=== PATIENT | female | born 1990 | race Caucasian/White ===

== ENCOUNTER 2017-03-03 16:49 | Emergency (ER) | payer OTHER ==
[~2017-03-03 16:49] MED LIST: PREN1MIS11 PO
--- NOTE | 2017-03-03 17:43 | PD ---
HPI Chief Complaint Vaginal spotting Date Seen: Mar 03, 2017 Travel History International Travel<30 Days: No Contact w/Intl Traveler<30Days: No Known Affected Area: No History of Present Illness HPI G1 at 38w 4d, [facility] 03-13-17 presents with c/o vaginal spotting after cervical exam in office. Patient reports some cramping. Denies LOF. Reports good movement. History Past Medical History Medical History: Denies Significant Hx Past Surgical History Surgical History: No Previous Surgery Family History Family History: Negative Social History Alcohol Use: No Tobacco Use: No Substance Abuse: No Allergies-Medications (Allergen,Severity, Reaction): Coded Allergies: No Known Allergies (Unverified , 03/03/17) Home Meds Active Scripts W/O Vit A W/ Fe Carbo Pack (Citranatal 90 Dha Pack)90-1 & 300 Mg Pack1 Ea PO DAILY #90 BLISTER Ref 0 30 day supply. Prov:Sylvain Bal MD 01/28/17 Physical Exam AFVSS BP 130/74 Narrative GENERAL: Well-nourished, well-developed patient. SKIN: Warm and dry. HEAD: Normocephalic and atraumatic. EYES: No scleral icterus. No injection or drainage. ENT: No nasal drainage noted. Mucous membranes pink. Airway patent. NECK: Supple, trachea midline. No JVD. CARDIOVASCULAR: Regular rate and rhythm without murmurs, gallops, or rubs. RESPIRATORY: Breath sounds equal bilaterally. No accessory muscle use. BREASTS: Bilateral exam showed no masses , no retractions, no nipple discharge. ABDOMEN/GI: Abdomen soft, non-tender, bowel sounds present, no rebound, no guarding Gravid to [-] weeks size Fundal Height: [-] GENITOURINARY: External Genitalia: intact and normal in appearance BUS glands: [-] Cervix: [ old blood noted in vault, no active bleeding] Dilatation: [1] Effacement: [60] Station: [3] Presentation: [-] Membranes: [intact or ruptured] Uterine Contractions: [irregular contractions] FHT's: Category: [1] Baseline: [120s] Reactive: [reactive] Variability: [moderate] Decels: [none] EXTREMITIES: No cyanosis or edema. BACK: Nontender without obvious deformity. No CVA tenderness. NEUROLOGICAL: Awake and alert. Motor and sensory grossly within normal limits. Five out of 5 muscle strength in all muscle groups. Normal speech. Data Data Vital Signs Reviewed: Yes Labs A+/negative, GBS positive MDM Interpretation(s) IUP at 38w 4d with vaginal spotting. Plan Will monitor and recheck. Will d/c home if no further bleeding and no cervical change. Close f/u if discharged. All questions answered. 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 Labor precautions given. Diagnosis Diagnosis: Primary Impression: 38 weeks gestation of Additional Impressions: Irregular uterine contractions False labor after 37 completed weeks of gestation Disposition: 01 DISCHARGE HOME Condition: Stable Marcella Healy MD Mar 03, 2017 17:43
[2017-04-16] MEDS ORDERED: AMOX875T PO (11:40)
[2017-04-19] MEDS ORDERED: EPIF1AER2 TOPICAL (14:24)
== END 2017-03-03 20:34 | disposition home or self-care (01) ==
LOC: HOBED 16:49
DX: O47.1 False labor at or after 37 completed weeks of gestation (principal); Z3A.38 38 weeks gestation of pregnancy
CPT/HCPCS: 59025

== ENCOUNTER 2017-03-15 19:39 | Emergency (ER) | payer OTHER ==
--- NOTE | 2017-03-15 20:35 | PD ---
HPI Chief Complaint Contractions Date Seen: Mar 15, 2017 Time Seen: 20:32 Travel History International Travel<30 Days: No Contact w/Intl Traveler<30Days: No Known Affected Area: No History of Present Illness HPI 26-year-old who is at 40 weeks and 2 days comes in complaining of intermittent contractions today. They started at 5:30 this morning and have been going on irregularly since that time. She was seen in the office this morning and cervix was 2 cm dilated and 80% effaced. Patient had a little bit of bleeding post exam. Patient is group B strep positive. She denies any complications, normal movement. Weeks Gestation: 40 Para: 0 : 3 History Past Medical History Medical History: Denies Significant Hx Obstetric History Obstetric History Spontaneous AB 2 Past Surgical History Surgical History: No Previous Surgery Family History Family History: Negative Social History Alcohol Use: No Tobacco Use: No Substance Abuse: No Allergies-Medications (Allergen,Severity, Reaction): Coded Allergies: No Known Allergies (Unverified , 03/15/17) Home Meds Active Scripts W/O Vit A W/ Fe Carbo Pack (Citranatal 90 Dha Pack) 90-1 & 300 Mg Pack , 1 EA PO DAILY for Nutritional Supplement, #90 BLISTER 0 Refills 30 day supply. Prov:Sylvain Bal MD 01/28/17 Review of Systems Except as stated in HPI: all other systems reviewed are Neg Physical Exam Narrative GENERAL: Well-nourished, well-developed patient. SKIN: Warm and dry. HEAD: Normocephalic and atraumatic. EYES: No scleral icterus. No injection or drainage. ENT: No nasal drainage noted. Mucous membranes pink. Airway patent. NECK: Supple, trachea midline. No JVD. CARDIOVASCULAR: Regular rate and rhythm without murmurs, gallops, or rubs. RESPIRATORY: Breath sounds equal bilaterally. No accessory muscle use. BREASTS: Bilateral exam showed no masses , no retractions, no nipple discharge. ABDOMEN/GI: Abdomen soft, non-tender, bowel sounds present, no rebound, no guarding Gravid to [37-] weeks size Fundal Height: [-] GENITOURINARY: External Genitalia: intact and normal in appearance BUS glands: [-Normal] Cervix: [-Posterior] Dilatation: [-1] Effacement: [-50] Station: [--4] Presentation: [-Vertex] Membranes: [intact ] Uterine Contractions: [-Absent] FHT's: Category: [-1] Baseline: [-145] Reactive: [-Moderate] Variability: [-Moderate] Decels: [-Absent] EXTREMITIES: No cyanosis or edema. BACK: Nontender without obvious deformity. No CVA tenderness. NEUROLOGICAL: Awake and alert. Motor and sensory grossly within normal limits. Five out of 5 muscle strength in all muscle groups. Normal speech. Data Data Vital Signs Reviewed: Yes Group B Strep: Positive MDM Medical Record Reviewed: Yes Plan 26-year-old who is at 40 weeks and 2 days with false labor Patient was instructed by her provider to call the office on Wednesday or of this week in order to set up a 41 week induction Diagnosis Diagnosis: Primary Impression: False labor after 37 completed weeks of gestation Additional Impression: 40 weeks gestation of Disposition: 01 DISCHARGE HOME Martha Lowe MD Mar 15, 2017 20:35
[2017-04-16] MEDS ORDERED: AMOX875T PO (11:40)
[2017-04-19] MEDS ORDERED: EPIF1AER2 TOPICAL (14:24)
== END 2017-03-15 20:46 | disposition home or self-care (01) ==
LOC: HOBED 19:39
DX: O47.9 False labor, unspecified (principal)
CPT/HCPCS: 59025

== ENCOUNTER 2017-03-17 19:52 | Inpatient (IN) | payer OTHER ==
[~2017-03-17] VITALS: Ht 160 cm; Wt 79.0 kg
[2017-03-17] MEDS: LACTATED RINGER'S 1000 ML IV SCH ×2 (21:00→23:52)
[2017-03-17 21:36] LABS: AUTOMATED NEUTROPHIL # 6.9 TH/MM3 (1.8-7.7); BASOPHIL % 0.2 % (0.0-2.0); EOSINOPHIL # 0.1 TH/MM3 (0-0.4); EOSINOPHIL % 1.1 % (0.0-4.0); HEMATOCRIT 35.1 % (35.0-46.0); HEMO FLAGS DIFF FINAL; LYMPH % 18.1 % (9.0-44.0); LYMPHOCYTE # 1.7 TH/MM3 (1.0-4.8); MEAN CELL VOLUME 89.8 FL (80.0-100.0); MEAN CORPUSCULAR HEMOGLOBIN 30.1 PG (27.0-34.0); MEAN CORPUSCULAR HGB CONC 33.6 % (32.0-36.0); MONO % 8.8 % (0.0-8.0); NEUT % 71.8 % (16.0-70.0); PLATELET COUNT 118 TH/MM3 (150-450); RED BLOOD COUNT 3.91 MIL/MM3 (4.00-5.30); RED CELL DISTRIBUTION WIDTH 13.2 % (11.6-17.2); WHITE BLOOD COUNT 9.6 TH/MM3 (4.0-11.0)
[2017-03-17 21:42] LABS: BACTERIA, URINE MOD /hpf; BLOOD, URINE TRACE (NEG); COMMENT (UR) CULTURE INDICATED; CULTURE IF INDICATED CULTURE INDICATED; GLUCOSE,URINE NEG (NEG); KETONE, URINE NEG (NEG); NITRITE,URINE NEG (NEG); PH, URINE 6.5 (5.0-8.5); SQUAMOUS EPITHELIAL CELL URINE 1 /hpf (0-5); URINE COLOR LIGHT-YELLOW (YELLW/STRAW)
[2017-03-17] MEDS ORDERED: LACTATED RINGER'S 1000 ML BOLUS IV PRN (21:45)
[2017-03-17] MEDS ORDERED: NS 500 ML BOLUS IV PRN (21:45)
[2017-03-17] MEDS ORDERED: PENICILLIN G POT 5,000,000 UNITS/NS 100 ML (Mini-Bag Plus) IV ONE ×2 (21:45)
[2017-03-17] MEDS ORDERED: MINERAL OIL 10 ML VIAL TOPICAL PRN (21:45)
[2017-03-17] MEDS ORDERED: OXYTOCIN 30 UNITS 500ML PREMIX IV ONE (21:45)
[2017-03-17] MEDS ORDERED: LIDOCAINE HCL 1% 50 ML VIAL I-DERMAL PRN (21:45)
[2017-03-17] MEDS ORDERED: ONDANSETRON HCL 4 MG/2 ML VIAL IV PRN (21:45)
[2017-03-17] MEDS ORDERED: LIDOCAINE HCL 1% 50 ML VIAL INFIL PRN (21:45)
[2017-03-17] MEDS ORDERED: CITRIC ACID-SODIUM CITRATE LIQ 30 ML UDC PO SCH (21:45)
[2017-03-17] MEDS ORDERED: NS 1000 ML IV PRN (21:45)
--- NOTE | 2017-03-17 22:03 | HHI.HP ---
HPI Chief Complaint Scheduled IOL Travel History International Travel<30 Days: No Contact w/Intl Traveler<30Days: No Known Affected Area: No History of Present Illness HPI 26y/o , IUP at 40.4 PNC complicated by h/o SAB x2 Patient presents for scheduled IOL. She denies any regular ctx, LOF, or VB. She reports good FM. She has no complaints today. Weeks Gestation: 40 Para: 0 Miscarriage: 2 : 0 History Past Medical History Narrative Medical Denies Obstetric History Obstetric History SAB x2 Menarche at 10 Menses q month H/o abnl PAP in past, normal this Denies h/o STDx Past Surgical History Narrative Surgical Denies Family History Narrative Family History HTN Social History Alcohol Use: No Tobacco Use: No Substance Abuse: No Allergies-Medications (Allergen,Severity, Reaction): Coded Allergies: No Known Allergies (Unverified , 03/15/17) Home Meds Active Scripts W/O Vit A W/ Fe Carbo Pack (Citranatal 90 Dha Pack) 90-1 & 300 Mg Pack , 1 EA PO DAILY for Nutritional Supplement, #90 BLISTER 0 Refills 30 day supply. Prov:Sylvain Bal MD 01/28/17 Review of Systems Except as stated in HPI: all other systems reviewed are Neg Physical Exam Narrative GENERAL: Well-nourished, well-developed patient. SKIN: Warm and dry. HEAD: Normocephalic and atraumatic. EYES: No scleral icterus. No injection or drainage. ENT: No nasal drainage noted. Mucous membranes pink. Airway patent. NECK: Supple, trachea midline. No JVD. CARDIOVASCULAR: Regular rate and rhythm without murmurs, gallops, or rubs. RESPIRATORY: Breath sounds equal bilaterally. No accessory muscle use. BREASTS: deferred ABDOMEN/GI: Abdomen soft, non-tender, bowel sounds present, no rebound, no guarding Gravid GENITOURINARY: External Genitalia: intact and normal in appearance BUS glands: [nl] Cervix: [nl] Dilatation: [cl] Effacement: [th] Station: [high] Membranes: [intact] Uterine Contractions: [irreg] FHT's: Category: [1] Baseline: [120] Reactive: [y] Variability: [moderate] Decels: [no] one variable after initial presentation, none since EXTREMITIES: No cyanosis or edema. BACK: Nontender without obvious deformity. No CVA tenderness. NEUROLOGICAL: Awake and alert. Motor and sensory grossly within normal limits. Five out of 5 muscle strength in all muscle groups. Normal speech. Caprini VTE Risk Assessment Caprini VTE Risk Assessment: No/Low Risk (score <= 1) Caprini Risk Assessment Model Point Value = 1 Point Value = 2 Point Value = 3 Point Value = 5 Age 41-60 Minor surgery BMI > 25 kg/m2 Swollen legs Varicose veins or History of unexplained or recurrent spontaneous Oral contraceptives or hormone replacement Sepsis (< 1 month) Serious lung disease, including pneumonia (< 1 month) Abnormal pulmonary function Acute myocardial infarction Congestive heart failure (< 1 month) History of inflammatory bowel disease Medical patient at bed rest Age 61-74 Arthroscopic surgery Major open surgery (> 45 min) Laparoscopic surgery (> 45 min) Malignancy Confined to bed (> 72 hours) Immobilizing plaster cast Central venous access Age >= 75 History of VTE Family history of VTE Factor V Leiden Prothrombin [id number] Lupus anticoagulant Anticardiolipin antibodies Elevated serum homocysteine Heparin-induced thrombocytopenia Other congenital or acquired thrombophilia Stroke (< 1 month) Elective arthroplasty Hip, pelvis, or leg fracture Acute spinal cord injury (< 1 month) Prophylaxis Regimen Total Risk Factor Score Risk Level Prophylaxis Regimen 0-1 Low Early ambulation 2 Moderate Order ONE of the following: *Sequential Compression Device (SCD) *Heparin 5000 units SQ BID 3-4 Higher Order ONE of the following medications: *Heparin 5000 units SQ TID *Enoxaparin/Lovenox 40 mg SQ daily (WT < 150 kg, CrCl > 30 mL/min) *Enoxaparin/Lovenox 30 mg SQ daily (WT < 150 kg, CrCl > 10-29 mL/min) *Enoxaparin/Lovenox 30 mg SQ BID (WT < 150 kg, CrCl > 30 mL/min) AND/OR *Sequential Compression Device (SCD) 5 or more Highest Order ONE of the following medications: *Heparin 5000 units SQ TID (Preferred with Epidurals) *Enoxaparin/Lovenox 40 mg SQ daily (WT < 150 kg, CrCl > 30 mL/min) *Enoxaparin/Lovenox 30 mg SQ daily (WT < 150 kg, CrCl > 10-29 mL/min) *Enoxaparin/Lovenox 30 mg SQ BID (WT < 150 kg, CrCl > 30 mL/min) AND *Sequential Compression Device (SCD) Data Data Orders Orders Complete Blood Count With Diff (03/17/17 21:13) Type And Screen (03/17/17 21:) Urinalysis - C+S If Indicated (03/17/17:) Specimen To Be Collected PRN (03/17/17:) Admit To Inpatient (03/17/17 ) Code Status (03/17/17 21:23) Vital Signs (Adult) .Per protocol (03/17/17:23) Activity Oob Ad Bia (03/17/17:) Heart (03/17/17:) Amnioinfusion (03/17/17:) Urinary Catheter Management .ONCE (03/17/17:) Diet Liquid (03/17/17 Dinner) Resp Oxygen Non Rebreathe Mask (03/17/17 ) ^ Epidural / Intrathecal Infus (03/17/17 21:23) Lactated Ringer's 1000 Ml Inj (Lr 1000 M (03/17/17 21:45) Lactated Ringer's 1000 Ml Inj (Lr 1000 M (03/17/17 21:45) Sodium Chlorid 0.9% 500 Ml Inj (Ns 500 M (03/17/17 21:45) Sodium Chlor 0.9% 1000 Ml Inj (Ns 1000 M (03/17/17 21:45) Lidocaine 1% Inj (50 Ml) (Xylocaine 1% I (03/17/17 21:45) Citric Acid-Sodium Citrate Liq (Bicitra (03/17/17 21:45) Ondansetron Inj (Zofran Inj) (03/17/17 21:45) Fentanyl Inj (Fentanyl Inj) (03/17/17 21:45) Fentanyl Inj (Fentanyl Inj) (03/17/17 21:45) Penicillin G Potassium Inj (Pfizerpen-G (03/17/17 21:45) Penicillin G Potassium Inj (Pfizerpen-G (03/18/17 02:00) Oxytocin 30 Units-500ml Premix (Pitocin (03/17/17 21:45) Lidocaine 1% Inj (50 Ml) (Xylocaine 1% I (03/17/17 21:45) Light Mineral Oil (Muri-Lube Oil) (03/17/17 21:45) Admit To Inpatient (03/17/17 ) Activity Oob Ad Bia (03/17/17 21:37) ^ Labor Induction (03/17/17 21:37) ^ Vaginal Insert (03/17/17 21:37) ^ Vaginal Lavage (03/17/17 21:37) Heart (03/17/17 21:37) Urine Culture (03/17/17 21:00) Misoprostol (Cytotec) (03/17/17 22:07) Labs Laboratory Tests Test 03/17/17 21:00 White Blood Count 9.6 Red Blood Count 3.91 Hemoglobin 11.8 Hematocrit 35.1 Mean Corpuscular Volume 89.8 Mean Corpuscular Hemoglobin 30.1 Mean Corpuscular Hemoglobin Concent 33.6 Red Cell Distribution Width 13.2 Platelet Count 118 Mean Platelet Volume 9.6 Neutrophils (%) (Auto) 71.8 Lymphocytes (%) (Auto) 18.1 Monocytes (%) (Auto) 8.8 Eosinophils (%) (Auto) 1.1 Basophils (%) (Auto) 0.2 Neutrophils # (Auto) 6.9 Lymphocytes # (Auto) 1.7 Monocytes # (Auto) 0.8 Eosinophils # (Auto) 0.1 Basophils # (Auto) 0.0 CBC Comment DIFF FINAL Differential Comment Urine Color LIGHT-YELLOW Urine Turbidity CLEAR Urine pH 6.5 Urine Specific Fine 1.006 Urine Protein NEG Urine Glucose (UA) NEG Urine Ketones NEG Urine Occult Blood TRACE Urine Nitrite NEG Urine Bilirubin NEG Urine Urobilinogen LESS THAN 2.0 Urine Leukocyte Esterase NEG Urine RBC LESS THAN 1 Urine WBC 1 Urine Squamous Epithelial Cells 1 Urine Amorphous Sediment RARE Urine Bacteria MOD Microscopic Urinalysis Comment CULTURE INDICATED Date/Time Source Procedure Growth Status 03/17/17 21:00 Urine Random Urine Urine Culture Pending Received Assessment/Plan Assessment and Plan A/P: 26y/o 1. IUP at 40.4 2. Postdates IOL: will admit and place cytotec, discussed methods of incudtion and risks of each. Discussed risks/indications of and C/S, all questions were answered, will proceed 3. wellbeing: reassuring testing, will monitor closely 4. GBS positive: will administer PCN G in labor 5. Rubella Nonimmune Tri Sanders MD Mar 17, 2017 22:02
[2017-03-17] MEDS ORDERED: MISOPROSTOL 100 MCG TAB - VAGINALLY VAGINAL ONE (22:07)
[2017-03-17 22:15] VITALS: RESP 16
[2017-03-17] MEDS ORDERED: MISOPROSTOL 25 MCG SUPP VAGINAL ONE (22:15)
[2017-03-17] MEDS ORDERED: MISOPROSTOL 25 MCG SUPP - repeat dose VAGINAL PRN (22:15)
[2017-03-17 22:16] VITALS: BP 117/73; PULSE 76
[2017-03-18] VITALS (77 sets, daily range): BP systolic 99–132; BP diastolic 49–78; PULSE 59–99; RESP 16–18; TEMP 97.8–98.8; O2SAT 96
[2017-03-18] MEDS ORDERED: PENICILLIN G POT 2,500,000 UNITS/NS 100 ML IV SCH ×4 (02:00→05:15)
[2017-03-18] MEDS ORDERED: PENICILLIN POTASSIUM IV ONE (04:15)
--- NOTE | 2017-03-18 04:21 | PD.LABORPN ---
Subjective Subjective S; comfortable, resting Objective Vital Signs Vital Signs Date Time Temp Pulse Resp B/P (MAP) Pulse Ox O2 Delivery O2 Flow Rate FiO2 03/18/17 00:00 72 16 03/18/17 00:00 72 16 03/17/17 22:16 76 117/73 (88) 03/17/17 22:15 16 Objective Pelvic Exam: SVE 2/70/-2, intact FHT's: 120s, moderate LTV, good accels, category 1, no decels noted at this time Will start oxytocin as ctx too frequently for additional cytotec, cervical change noted. Will start PCN G for GBS prophylaxis. Weeks Gestation: 40 Gest Age Assessed Date: Mar 18, 2017 Gest Age Assessed Time: 04:21 Pt started active labor?: No Medical induction of labor?: Yes Medical induction start date: Mar 17, 2017 Medical induction start time: 22:00 Artificial rupture of membrane: No Tri Sanders MD Mar 18, 2017 04:21
[2017-03-18] MEDS ORDERED: OXYTOCIN 30 UNITS-500ML PREMIX 500 ML IV SCH ×2 (04:30→09:30)
--- NOTE | 2017-03-18 07:56 | PD.LABORPN ---
Subjective Subjective Patient is resting in bed comfortably, feeling pain with contractions. Objective Vital Signs Vital Signs Date Time Temp Pulse Resp B/P (MAP) Pulse Ox O2 Delivery O2 Flow Rate FiO2 03/18/17 07:19 64 121/71 (88) 03/18/17 07:17 97.8 03/18/17 07:17 18 03/18/17 06:40 65 107/65 (79) 03/18/17 06:39 18 03/18/17 05:07 66 18 109/70 (83) 03/18/17 04:28 98.1 03/18/17 04:27 16 03/18/17 04:24 64 112/61 (78) 03/18/17 00:00 72 16 03/18/17 00:00 72 16 Objective Pelvic Exam: Cervix: posterior Dilatation: 2 Effacement: 70 Station: -2 Presentation: vertex Membranes: intact Uterine Contractions: q2-4min FHT's: Category: I Baseline: 120 Reactive: + Variability: moderate Decels: none Weeks Gestation: 40 Gest Age Assessed Date: Mar 18, 2017 Gest Age Assessed Time: 04:21 Pt started active labor?: No Medical induction of labor?: Yes Medical induction start date: Mar 17, 2017 Medical induction start time: 22:00 Artificial rupture of membrane: No Assessment/Plan Assessment and Plan 26 year old at 40-5/7 weeks gestation. 1. IUP- Category I tracing, reassuring. 2. IOL- Cytotec x 1 overnight, now on Pitocin 1-1-30. Continue to monitor. 3. GBS positive- Penicillin per protocol dw Dr. Sanders and Dr. Aragon R1 Molly Motta MD, R3 Mar 18, 2017 07:56
[2017-03-18] MEDS: PENICILLIN G POT 2,500,000 UNITS/NS 100 ML IV SCH ×8 (08:00→20:25)
[2017-03-18] MEDS: LACTATED RINGER'S 1000 ML IV SCH (12:00)
[2017-03-18] MEDS ORDERED: ePHEDrine/NS 25 MG/5 ML SYR ONE (13:37)
[2017-03-18] MEDS ORDERED: fentaNYL 2MCG-BUPIV 0.125% INJ 100 ML ONE (13:37)
[2017-03-18] MEDS ORDERED: NO SYSTEM NARCOTICS PRN (13:50)
[2017-03-18] MEDS ORDERED: fentaNYL 2MCG-BUPIV 0.125% 100 ML EPIDURAL SCH (13:50)
[2017-03-18] MEDS ORDERED: DO NOT ADMINISTER ANTICOAGULANTS PRN (13:50)
[2017-03-18] MEDS ORDERED: ePHEDrine/NS 25 MG/5 ML SYR IV PRN (17:15)
--- NOTE | 2017-03-18 21:39 | PD.LABORPN ---
Subjective Subjective Patient reports that she is doing well; no complaints at this time. Objective Vital Signs Vital Signs Date Time Temp Pulse Resp B/P (MAP) Pulse Ox O2 Delivery O2 Flow Rate FiO2 03/18/17 21:13 18 03/18/17 21:10 75 03/18/17 21:05 80 03/18/17 21:00 84 111/70 (84) 03/18/17 21:00 84 03/18/17 20:40 80 03/18/17 20:35 81 03/18/17 20:30 97 114/62 (79) 03/18/17 20:30 85 03/18/17 20:10 80 03/18/17 20:05 87 18 03/18/17 20:00 85 121/68 (85) 03/18/17 18:40 76 03/18/17 18:35 77 03/18/17 18:30 73 03/18/17 18:30 98.8 18 03/18/17 18:30 71 104/64 (77) 03/18/17 18:10 78 03/18/17 18:05 78 03/18/17 18:00 80 110/66 (81) 03/18/17 18:00 77 03/18/17 17:40 76 03/18/17 17:35 75 03/18/17 17:30 85 111/60 (77) 03/18/17 17:30 74 03/18/17 17:25 77 03/18/17 17:20 77 03/18/17 17:15 95 03/18/17 17:10 92 03/18/17 17:05 90 03/18/17 17:00 73 107/60 (76) 03/18/17 17:00 83 03/18/17 16:55 96 03/18/17 16:50 77 03/18/17 16:45 92 03/18/17 16:40 81 03/18/17 16:35 83 03/18/17 16:30 95 110/66 (81) 03/18/17 16:30 90 03/18/17 16:01 18 03/18/17 16:00 82 03/18/17 16:00 71 105/63 (77) 03/18/17 15:41 18 03/18/17 15:40 88 03/18/17 15:39 98.2 03/18/17 15:35 68 96 03/18/17 15:30 67 108/59 (75) 96 03/18/17 15:30 73 03/18/17 15:10 80 03/18/17 15:05 85 03/18/17 15:00 99 104/64 (77) 03/18/17 15:00 81 03/18/17 14:40 92 03/18/17 14:35 89 03/18/17 14:30 88 03/18/17 14:30 85 107/63 (78) 03/18/17 14:25 81 03/18/17 14:20 89 03/18/17 14:15 80 03/18/17 14:15 68 103/58 (73) 03/18/17 14:10 83 03/18/17 14:05 68 03/18/17 14:05 74 107/56 (73) 03/18/17 14:00 80 03/18/17 14:00 81 105/65 (78) 03/18/17 13:55 79 03/18/17 13:55 111/59 (76) 03/18/17 13:55 76 03/18/17 13:50 112/69 (83) 03/18/17 13:50 83 03/18/17 13:50 90 03/18/17 13:45 89 03/18/17 13:45 84 03/18/17 13:45 113/72 (86) 03/18/17 13:42 92 132/74 (93) 03/18/17 13:30 98.1 03/18/17 13:30 18 Objective General: No acute distress Pelvic Exam: Cervix: Dilatation: 9 Effacement: 90% Station: 0 Presentation: V Membranes: SROM 1745 Uterine Contractions: q2-3 min FHT's: Category: 1 Baseline: 130 Reactive: Y Variability: Moderate Decels: None Weeks Gestation: 40 Gest Age Assessed Date: Mar 18, 2017 Gest Age Assessed Time: 04:21 Pt started active labor?: No Medical induction of labor?: Yes Medical induction start date: Mar 17, 2017 Medical induction start time: 22:00 Artificial rupture of membrane: No Assessment/Plan Problem List: (1) 40 weeks gestation of ICD Codes: Z3A.40 - 40 weeks gestation of Assessment and Plan 26 year old at 40-5/7 weeks gestation. 1. IUP - Category I tracing, contractions q 2-3 minutes 2. IOL- -s/p Cytotec x 1 dose -Continue Pitocin 1-1-30 -S/P epidural 3. GBS positive - Penicillin per protocol Ruperto Strauss MD, R3 Mar 18, 2017 21:39
[2017-03-19] VITALS (14 sets, daily range): BP systolic 108–143; BP diastolic 58–98; PULSE 74–126; RESP 18–20; TEMP 98–98.3
--- NOTE | 2017-03-19 00:38 | PD.OB.DELI ---
Weeks gestation: 40 Gest age assessed date: Mar 18, 2017 Gest age assessed time: 04:21 Pt started active labor?: No Medical induction of labor?: Yes Medical induction start date: Mar 17, 2017 Medical induction start time: 22:00 Artificial rupture of membrane: No Anesthesia: Epidural Episiotomy: None Vaginal Delivery: Normal Presentation: Occiput anterior Nuchal Cord: None Delayed cord clamping (45 sec): Yes Infant: Male Delivery date: Mar 19, 2017 Delivery time: 11:59 One Minute : 8 Five Minute : 9 Weight: 3465 Placenta: Spontaneous delivery, Intact, 3 vessel cord Laceration: 2 deg Repair: Vicryl interrupted, Vicryl running Additional Information 2nd degree perineal repair performed by myself and Dr. Milian using 0 and 3-0 vicryl sutures Patient also had small periurethral laceration which achieved hemostasis without intervention Ruperto Strauss MD, R3 Mar 19, 2017 00:38
[2017-03-19] MEDS ORDERED: oxyCODONE/ACETAMINOPHEN 5 MG/325 MG TAB PO PRN ×2 (00:45)
[2017-03-19] MEDS ORDERED: BENZOCAINE 20% TOPICAL SPRAY 60 ML CAN TOPICAL PRN (00:45)
[2017-03-19] MEDS ORDERED: SODIUM CHLORIDE 0.9% FLUSH 10 ML FLUSH IV FLUSH PRN (00:45)
[2017-03-19] MEDS ORDERED: ZOLPIDEM TARTRATE 5 MG TAB PO PRN (00:45)
[2017-03-19] MEDS ORDERED: ALUMINUM/MAGNESIUM/SIMETH 30 ML CUP PO PRN (00:45)
[2017-03-19] MEDS ORDERED: OXYTOCIN 30 UNITS-500ML PREMIX 500 ML IV SCH (00:45)
[2017-03-19] MEDS ORDERED: DOCUSATE SODIUM 50 MG/SENNA 8.6 MG TAB PO PRN (00:45)
[2017-03-19] MEDS ORDERED: ONDANSETRON ODT 4 MG TAB PO PRN (00:45)
[2017-03-19] MEDS ORDERED: WITCH HAZEL 50%/GLYCERIN 12.5% 40 PAD JAR TOPICAL PRN (00:45)
--- NOTE | 2017-03-19 00:45 | PD.LABORPN ---
Subjective Subjective Remains comfortable Objective Vital Signs Vital Signs Date Time Temp Pulse Resp B/P (MAP) Pulse Ox O2 Delivery O2 Flow Rate FiO2 03/19/17 00:08 20 03/19/17 00:08 20 03/18/17 22:30 95 129/78 (95) 03/18/17 22:15 98.6 03/18/17 22:14 18 03/18/17 22:10 87 03/18/17 22:05 85 03/18/17 22:00 83 114/64 (81) 03/18/17 22:00 79 03/18/17 21:13 18 03/18/17 21:10 75 03/18/17 21:05 80 03/18/17 21:00 84 111/70 (84) 03/18/17 21:00 84 03/18/17 20:40 80 03/18/17 20:35 81 03/18/17 20:30 97 114/62 (79) 03/18/17 20:30 85 03/18/17 20:10 80 03/18/17 20:05 87 18 03/18/17 20:00 85 121/68 (85) 03/18/17 18:40 76 03/18/17 18:35 77 03/18/17 18:30 73 03/18/17 18:30 98.8 18 03/18/17 18:30 71 104/64 (77) 03/18/17 18:10 78 03/18/17 18:05 78 03/18/17 18:00 80 110/66 (81) 03/18/17 18:00 77 03/18/17 17:40 76 03/18/17 17:35 75 03/18/17 17:30 85 111/60 (77) 03/18/17 17:30 74 03/18/17 17:25 77 03/18/17 17:20 77 03/18/17 17:15 95 03/18/17 17:10 92 03/18/17 17:05 90 03/18/17 17:00 73 107/60 (76) 03/18/17 17:00 83 03/18/17 16:55 96 03/18/17 16:50 77 03/18/17 16:45 92 Objective Pelvic Exam: Cervix: [soft] Dilatation: [5cm] Effacement: [70%] Station: [0] Presentation: [vertex] Membranes: [ruptured] Uterine Contractions: [every4-5minutes] FHT's: Category: [cat1] Baseline: [130s] Reactive: [-] Variability: [moderate] Decels: [-] Weeks Gestation: 40 Gest Age Assessed Date: Mar 18, 2017 Gest Age Assessed Time: 04:21 Pt started active labor?: No Medical induction of labor?: Yes Medical induction start date: Mar 17, 2017 Medical induction start time: 22:00 Artificial rupture of membrane: No Assessment/Plan Problem List: (1) 40 weeks gestation of ICD Codes: Z3A.40 - 40 weeks gestation of Plan: Fetus intolerant of Pitocin. Without Pitocin, contractions not achieving cervical change. Plan for Primary C Section Mat Milian MD Mar 19, 2017 00:45
[2017-03-19] MEDS: IBUPROFEN 600 MG TAB PO PRN ×3 (01:06→17:26)
--- NOTE | 2017-03-19 07:19 | HHI.OB ---
Subjective Post Day: 1 Remarks Mrs. Santiago is a 26 yo who is PPD 1 from 03/18 at 1159. Patient reports that she is doing well at this time; she reports that she has had some difficulty waking to breastfeed but she is motivated to continue . Patient does not report significant abdominal pain but feels some vaginal pain [s/p 2nd degree laceration in perineal area]. Patient does not report chest pain, shortness of breath, or leg swelling. Patient does not report excessive vaginal bleeding. Objective Vitals/I&O Vital Signs Date Time Temp Pulse Resp B/P (MAP) Pulse Ox O2 Delivery O2 Flow Rate FiO2 03/19/17 04:20 98.1 86 20 109/68 (82) 03/19/17 02:36 18 03/19/17 02:36 89 114/58 (76) 03/19/17 01:58 18 03/19/17 01:45 98 123/87 (99) 03/19/17 01:45 18 03/19/17 01:30 98.0 03/19/17 01:30 103 121/77 (92) 03/19/17 01:30 18 03/19/17 01:15 18 03/19/17 01:15 100 119/72 (88) 03/19/17 01:00 91 20 114/68 (83) 03/19/17 01:00 98.3 03/19/17 00:45 101 118/66 (83) 03/19/17 00:37 99 121/71 (88) 03/19/17 00:37 20 03/19/17 00:31 89 127/64 (85) 03/19/17 00:08 20 03/19/17 00:08 20 03/19/17 00:00 126 143/98 (113) 03/18/17 22:30 95 129/78 (95) 03/18/17 22:15 98.6 03/18/17 22:14 18 03/18/17 22:10 87 03/18/17 22:05 85 03/18/17 22:00 83 114/64 (81) 03/18/17 22:00 79 03/18/17 21:13 18 03/18/17 21:10 75 03/18/17 21:05 80 03/18/17 21:00 84 111/70 (84) 03/18/17 21:00 84 03/18/17 20:40 80 03/18/17 20:35 81 03/18/17 20:30 97 114/62 (79) 03/18/17 20:30 85 03/18/17 20:10 80 03/18/17 20:05 87 18 03/18/17 20:00 85 121/68 (85) 03/18/17 18:40 76 03/18/17 18:35 77 03/18/17 18:30 73 03/18/17 18:30 98.8 18 03/18/17 18:30 71 104/64 (77) 03/18/17 18:10 78 03/18/17 18:05 78 03/18/17 18:00 80 110/66 (81) 03/18/17 18:00 77 03/18/17 17:40 76 03/18/17 17:35 75 03/18/17 17:30 85 111/60 (77) 03/18/17 17:30 74 03/18/17 17:25 77 03/18/17 17:20 77 03/18/17 17:15 95 03/18/17 17:10 92 03/18/17 17:05 90 03/18/17 17:00 73 107/60 (76) 03/18/17 17:00 83 03/18/17 16:55 96 03/18/17 16:50 77 03/18/17 16:45 92 03/18/17 16:40 81 03/18/17 16:35 83 03/18/17 16:30 95 110/66 (81) 03/18/17 16:30 90 03/18/17 16:01 18 03/18/17 16:00 82 03/18/17 16:00 71 105/63 (77) 03/18/17 15:41 18 03/18/17 15:40 88 03/18/17 15:39 98.2 03/18/17 15:35 68 96 03/18/17 15:30 67 108/59 (75) 96 03/18/17 15:30 73 03/18/17 15:10 80 03/18/17 15:05 85 03/18/17 15:00 99 104/64 (77) 03/18/17 15:00 81 03/18/17 14:40 92 03/18/17 14:35 89 03/18/17 14:30 88 03/18/17 14:30 85 107/63 (78) 03/18/17 14:25 81 03/18/17 14:20 89 03/18/17 14:15 80 03/18/17 14:15 68 103/58 (73) 03/18/17 14:10 83 03/18/17 14:05 68 03/18/17 14:05 74 107/56 (73) 03/18/17 14:00 80 03/18/17 14:00 81 105/65 (78) 03/18/17 13:55 79 03/18/17 13:55 111/59 (76) 03/18/17 13:55 76 03/18/17 13:50 112/69 (83) 03/18/17 13:50 83 03/18/17 13:50 90 03/18/17 13:45 89 03/18/17 13:45 84 03/18/17 13:45 113/72 (86) 03/18/17 13:42 92 132/74 (93) 03/18/17 13:30 98.1 03/18/17 13:30 18 03/18/17 13:00 61 102/51 (68) 03/18/17 13:00 18 03/18/17 12:18 62 99/49 (66) 03/18/17 10:57 68 110/62 (78) 03/18/17 10:56 98.0 18 03/18/17 09:55 18 03/18/17 09:54 70 106/55 (72) 03/18/17 09:17 59 106/53 (70) 03/18/17 07:55 60 114/56 (75) 03/18/17 07:19 64 121/71 (88) 03/18/17 07:17 97.8 03/18/17 07:17 18 Objective Remarks VS 03/19 at 0420 T 98.1 HR 86 RR 20 BP 109/68 GENERAL: Well-nourished, well-developed patient. CARDIOVASCULAR: Regular rate and rhythm without murmurs; normal perfusion RESPIRATORY: CTAB, normal rate ABDOMEN/GI: Abdomen soft, non-tender. Fundus relatively firm GENITOURINARY: Light to moderate bleeding. EXTREMITIES: No cyanosis or edema, non-tender, without signs of DVT. Medications and IVs Current Medications Medications (Trade) Dose Ordered Sig/Ed Route Start Time Stop Time Status Last Admin Miscellaneous Information No systemic narcotics to be given except... UNSCH PRN .XX 03/18/17 13:50 03/19/17 13:49 Miscellaneous Information DO NOT ADMINISTER ANY ANTICOAGUL... UNSCH PRN .XX 03/18/17 13:50 03/19/17 13:49 (NS Flush) 2 ml BID IV FLUSH 03/19/17 09:00 (NS Flush) 2 ml UNSCH PRN IV FLUSH 03/19/17 00:45 (Tylenol) 650 mg Q4H PRN PO 03/19/17 00:45 (Motrin) 600 mg Q6H PRN PO 03/19/17 00:45 03/19/17 01:06 (Percocet 5-325 Mg) 1 tab Q4H PRN PO 03/19/17 00:45 (Percocet 5-325 Mg) 2 tab Q4H PRN PO 03/19/17 00:45 (Americaine 20% Top Spr) 1 spray Q4H PRN TOPICAL 03/19/17 00:45 03/19/17 04:56 (Tucks Pads) 1 applic QID PRN TOPICAL 03/19/17 00:45 03/19/17 04:56 (Essence-Colace) 2 tab Q12H PRN PO 03/19/17 00:45 (Ambien) 5 mg HS PRN PO 03/19/17 00:45 (M-M-R Ii Inj) 0.5 ml ONCE ONCE SQ 03/19/17 16:00 03/19/17 16:01 (Boostrix Inj) 0.5 ml ONCE ONCE IM 03/19/17 16:00 03/19/17 16:01 (Mag-Al Plus Susp Liq) 15 ml Q8H PRN PO 03/19/17 00:45 (Zofran Odt) 4 mg Q6H PRN PO 03/19/17 00:45 Assessment/Plan Problem List: (1) 40 weeks gestation of ICD Codes: Z3A.40 - 40 weeks gestation of Assessment and Plan Mrs. Jack is a 26 yo who is PPD 1 from 03/18 at 1159. -Continue routine care -assist breast feeding as needed -Continue VS monitoring -Encourage ambulation -Monitor vaginal bleeding, adequate urination, pain control -discuss contraception if desired, etc prior to discharge Ruperto Strauss MD, R3 Mar 19, 2017 07:19
[2017-03-19] MEDS ORDERED: SODIUM CHLORIDE 0.9% FLUSH 10 ML FLUSH IV FLUSH SCH (09:00)
[2017-03-19] MEDS: ACETAMINOPHEN 325 MG TAB PO PRN ×2 (13:17→17:26)
[2017-03-19] MEDS ORDERED: DIPHTH/TETANUS/ACEL PERTUSSIS (BOOSTER) 0.5 ML VIAL/PFS IM ONE (16:00)
[2017-03-19] MEDS ORDERED: MEASLES, MUMPS, RUBELLA VACCINE 0.5 ML VIAL SQ ONE (16:00)
[2017-03-20] MEDS: IBUPROFEN 600 MG TAB PO PRN ×2 (02:12→09:21)
[2017-03-20] MEDS: ACETAMINOPHEN 325 MG TAB PO PRN ×2 (02:13→09:21)
[2017-03-20 08:10] VITALS: BP 111/56; PULSE 81; RESP 18; TEMP 98.1
[2017-03-20] MEDS ORDERED: IBUP-232 PO (08:45)
[2017-03-20] MEDS ORDERED: PERI8.6T PO (08:45)
--- NOTE | 2017-03-20 08:45 | HHI.OB ---
Subjective Remarks PPD day # 2. No acute issues overnight, vitals are stable, patient remains afebrile. Decreasing lochia and pain. Patient is ambulating without difficulty and voiding independently. She is feeding the baby via breast. She denies any nausea or vomiting and has a good appetite. Positive flatus/bowel movement. She denies any calf pain, chest pain, or shortness of breath. She is bonding well with infant. (Molly Motta MD, R3) Remarks Patient seen and evaluated with resident under direct supervision, agree with assessment and plan. (Faisal Holguin MD) Objective Vitals/I&O Vital Signs Date Time Temp Pulse Resp B/P (MAP) Pulse Ox O2 Delivery O2 Flow Rate FiO2 03/19/17 20:44 118/65 (82) 03/19/17 20:44 98.0 74 18 Objective Remarks GENERAL: Well-nourished, well-developed patient. CARDIOVASCULAR: Regular rate and rhythm without murmurs, gallops, or rubs. RESPIRATORY: Breath sounds equal bilaterally. No accessory muscle use. ABDOMEN/GI: Abdomen soft, non-tender. Fundus: Firm, non-tender at umbilicus. GENITOURINARY: Light to moderate bleeding. EXTREMITIES: No cyanosis or edema, non-tender, without signs of DVT. Medications and IVs Current Medications Medications (Trade) Dose Ordered Sig/Ed Route Start Time Stop Time Status Last Admin (NS Flush) 2 ml BID IV FLUSH 03/19/17 09:00 (NS Flush) 2 ml UNSCH PRN IV FLUSH 03/19/17 00:45 (Tylenol) 650 mg Q4H PRN PO 03/19/17 00:45 03/20/17 02:13 (Motrin) 600 mg Q6H PRN PO 03/19/17 00:45 03/20/17 02:12 (Percocet 5-325 Mg) 1 tab Q4H PRN PO 03/19/17 00:45 (Percocet 5-325 Mg) 2 tab Q4H PRN PO 03/19/17 00:45 (Americaine 20% Top Spr) 1 spray Q4H PRN TOPICAL 03/19/17 00:45 03/19/17 04:56 (Tucks Pads) 1 applic QID PRN TOPICAL 03/19/17 00:45 03/19/17 04:56 (Esesnce-Colace) 2 tab Q12H PRN PO 03/19/17 00:45 (Ambien) 5 mg HS PRN PO 03/19/17 00:45 (Mag-Al Plus Susp Liq) 15 ml Q8H PRN PO 03/19/17 00:45 (Zofran Odt) 4 mg Q6H PRN PO 03/19/17 00:45 (Molly Motta MD, R3) Assessment/Plan Problem List: (1) (spontaneous vaginal delivery) ICD Codes: O80 - Encounter for full-term uncomplicated delivery Assessment and Plan 26 y/o female who is PPD # 2 s/p . -Continue routine care. -Percocet and Motrin PRN pain. -Encouraged OOB. Advised pelvic rest for 6 wks. -Re: ctrl, she would like to consider her options. - Discharge home today. dw Dr. Holguin (Molly Motta MD, R3) Molly Motta MD, R3 Mar 20, 2017 08:44 Faisal Holguin MD Mar 20, 2017 09:41
--- NOTE | 2017-03-20 08:46 | HHI.DCPOC ---
Discharge Care Plan Diagnosis: (1) (spontaneous vaginal delivery) Report Symptoms to Your Doctor -Temperature above 100.5 degrees -Redness, of incision or excessive or foul smelling drainage -Unusual pain or calf pain -Increased vaginal bleeding -Painful or difficulty urinating -Feelings of extreme sadness or anxiety after 2 weeks Goals to Promote Your Health * To prevent worsening of your condition and complications * To maintain your health at the optimal level Directions to Meet Your Goals Take your medications as prescribed Follow your dietary instruction Follow activity as directed Ensure plenty of rest for recovery Drink fluids for hydration Keep your appointments as scheduled Take your immunizations and boosters as scheduled If your symptoms worsen call your PCP, if no PCP go to Urgent Care Center or Emergency Room Smoking is Dangerous to Your Health. Avoid second hand smoke Call the 24-hour crisis hotline for domestic abuse at Molly Motta MD, R3 Mar 20, 2017 08:46 Faisal Holguin MD Mar 20, 2017 09:41
[2017-04-16] MEDS ORDERED: AMOX875T PO (11:40)
[2017-04-19] MEDS ORDERED: EPIF1AER2 TOPICAL (14:24)
== END 2017-03-20 17:30 | disposition home or self-care (01) | DRG 775 ==
LOC: H2EA 19:52 → H1EA 03-19 03:43
PROVIDERS: ADMIT Obstetrics & Gynecology; ATTEND Obstetrics & Gynecology
PROC: 3E0P7GC Introduction of Other Therapeutic Substance into Female Reproductive, Via Natural or Artificial Opening (ICD-10-PCS; 2017-03-17)
PROC: 3E033VJ Introduction of Other Hormone into Peripheral Vein, Percutaneous Approach (ICD-10-PCS; 2017-03-17)
PROC: 10E0XZZ Delivery of Products of Conception, External Approach (ICD-10-PCS; principal; 2017-03-19)
PROC: 0KQM0ZZ Repair Perineum Muscle, Open Approach (ICD-10-PCS; 2017-03-19)
DX: O48.0 Post-term pregnancy (principal); O47.1 False labor at or after 37 completed weeks of gestation; O99.824 Streptococcus B carrier state complicating childbirth; O70.1 Second degree perineal laceration during delivery; Z3A.40 40 weeks gestation of pregnancy; Z37.0 Single live birth
CPT/HCPCS: 59025; 81001; 85025; 86850; 86900; 86901; 87086; 90707; 90715; J2540; J2590; J3010; J7120